=== PATIENT | female | born 1995 | race African-American/Black ===

== ENCOUNTER 2022-10-08 18:18 | Observation (INO) | payer MEDICAID, OTHER ==
[~2022-10-08] VITALS: Ht 154.9 cm; Wt 70.3 kg
== END 2022-10-08 20:00 | disposition left against medical advice (07) ==
LOC: 8 EST LDRP 18:18
PROVIDERS: ADMIT Obstetrics & Gynecology; ATTEND Obstetrics & Gynecology
DX: O26.892 Other specified pregnancy related conditions, second trimester (principal); R10.9 Unspecified abdominal pain; M54.9 Dorsalgia, unspecified; O62.9 Abnormality of forces of labor, unspecified; Z3A.21 21 weeks gestation of pregnancy
CPT/HCPCS: 99281; G0378